=== PATIENT | female | born 1970 | race Caucasian/White ===

== ENCOUNTER → 2017-05-04 | Outpatient (CLI) | payer OTHER ==
[~2017-05-04] MED LIST: [UNRECOGNIZED DRUG - REMARK]; fenofibrate PO; synthroid PO
[2017-05-04 11:29] LABS: HEMATOCRIT 44.7 % (34.6-47.8); HEMOGLOBIN 15.3 g/dL (11.7-16.4); WHITE BLOOD COUNT 9.8 x10^3/uL (3.4-10)
== END | disposition home or self-care (01) ==
LOC: STAR 10:11
PROVIDERS: ATTEND Obstetrics & Gynecology
DX: Z01.818 Encounter for other preprocedural examination (principal); N92.0 Excessive and frequent menstruation with regular cycle
CPT/HCPCS: 36415; 81001; 84703; 85025; 87086

== ENCOUNTER 2017-05-18 09:06 | Day surgery (SDC) | payer OTHER ==
[2017-05-04 10:33] VITALS: BP 121/86
[~2017-05-18] VITALS: Ht 172.7 cm; Wt 102.0 kg
[2017-05-18] MEDS ORDERED: LACTATED RINGERS 1,000 ML IV SCH (09:59)
[2017-05-18] MEDS ORDERED: LITH8SOL6 PO (10:08)
[2017-05-18] MEDS ORDERED: LEVO88TA2 PO (10:08)
[2017-05-18] MEDS ORDERED: LUBI24CA7 PO (10:08)
[2017-05-18] MEDS ORDERED: [UNRECOGNIZED DRUG - OTHER] PO (10:08)
[2017-05-18] MEDS ORDERED: FENO54TA17 PO (10:08)
[2017-05-18] MEDS ORDERED: TRAZ50TA18 PO (10:08)
[2017-05-18] MEDS ORDERED: [UNRECOGNIZED DRUG - OTHER] (10:10)
[2017-05-18] MEDS ORDERED: LURA80TA PO (10:10)
[2017-05-18] MEDS ORDERED: VASOPRESSIN 20 UNIT/ML, 1ML ONE (10:11)
[2017-05-18] MEDS ORDERED: SILVER NITRATE STICK TP ONE (10:11)
[2017-05-18] MEDS ORDERED: KETAMINE 10 MG/ML, 20ML ONE (11:57)
[2017-05-18] MEDS ORDERED: FENTANYL PF 100 MCG/2ML ONE ×2 (11:57→13:13)
[2017-05-18] MEDS ORDERED: HYDROmorphone 1 MG/ML, 1ML ONE (11:58)
[2017-05-18] MEDS ORDERED: METOCLOPRAMIDE 5 MG/ML, 2ML ONE (11:59)
[2017-05-18] MEDS ORDERED: DEXAMETHASONE 4 MG/ML, 5ML ONE (11:59)
[2017-05-18] MEDS ORDERED: ONDANSETRON 2MG/ML, 2ML ONE (11:59)
[2017-05-18] MEDS ORDERED: FENTANYL PF 100 MCG/2ML IV PRN (12:30)
[2017-05-18] MEDS ORDERED: ONDANSETRON 2MG/ML, 2ML IVPush PRN (12:30)
[2017-05-18] MEDS ORDERED: OXYcodone 5 MG/5 ML ORAL.SOL UDC PO PRN (12:30)
[2017-05-18] MEDS ORDERED: LABETALOL 5MG/ML, 20ML IV PRN (12:30)
[2017-05-18] MEDS ORDERED: MIDAZOLAM 1 MG/ML, 2ML IV PRN (12:30)
[2017-05-18] MEDS ORDERED: HYDROmorphone 1 MG/ML, 1ML IV PRN (12:30)
[2017-05-18] MEDS ORDERED: PROMETHAZINE 25 MG/ML, 1ML IV PRN (12:30)
[2017-05-18] MEDS ORDERED: hydrALAzine 20 MG/ML, 1ML IV PRN (12:30)
[2017-05-18] MEDS ORDERED: ACETAMINOPHEN 325 MG TABLET PO PRN (12:30)
[2017-05-18] MEDS ORDERED: OXYcodone 5 MG/5 ML ORAL.SOL UDC ONE (13:13)
== END 2017-05-18 14:30 ==
LOC: OUT 09:06
PROVIDERS: ATTEND Obstetrics & Gynecology
DX: N92.0 Excessive and frequent menstruation with regular cycle (principal); F17.210 Nicotine dependence, cigarettes, uncomplicated; Z90.49 Acquired absence of other specified parts of digestive tract; Z98.890 Other specified postprocedural states
CPT/HCPCS: 58563; J1100; J1170; J2405; J2765; J3010; J7120